=== PATIENT | male | born 1955 | race Caucasian/White ===

== ENCOUNTER 2016-05-22 13:53 | Emergency (ER) | payer OTHER ==
[~2016-05-22] VITALS: Ht 185.4 cm; Wt 84.7 kg
[~2016-05-22 13:53] MED LIST: CLONAZEPAM1 MG PO; EFFEXOR XR75 MG PO; KEPPRA1000 MG PO; KEPPRA750 MG PO; LEVETIRACETAM1000 MG PO; LEVETIRACETAM500 MG PO; LEVETIRACETAM750 MG PO; LISINOPRIL10 MG PO; LISINOPRIL20 MG PO; METFORMIN HCL1000 MG PO; METFORMIN HCL850 MG PO; OMEPRAZOLE20 MG PO; OXCARBAZEPINE300 MG PO; PHENOBARBITAL32.4 MG PO; RITALIN20 MG PO; SIMVASTATIN40 MG PO; VENLAFAXINE HCL75 M3 PO; XANAX1 MG PO
[2016-05-22 15:29] LABS: EOSINOPHIL (%) 2.2 % (0-5); EOSINOPHIL COUNT 0.2 K/uL (0-0.3); HEMATOCRIT 41.7 % (38.0-50.0); IMMATURE GRANULOCYTE (%) 0.4 % (0.0-0.7); IMMATURE GRANULOCYTE COUNT 0.3 K/uL; LYMPHOCYTE COUNT 2.3 K/uL (1.0-2.8); MCH 30.8 PG (29.0-34.0); MCHC 36.5 G/DL (30.0-36.0); MCV 84.4 FL (86-99); MEAN PLAT.VOLUME 9.5 uM^3 (9.0-12.4); NEUTROPHIL (%) 53.7 % (45-76); NEUTROPHIL COUNT 4.1 K/uL (1.8-6.4); PLATELET COUNT 239 K/uL (156-360); RBC DIS.WIDTH-CV 12.2 % (11.8-14.6); RBC DIS.WIDTH-SD 36.8 % (39-53); RED BLOOD COUNT 4.94 M/uL (4.00-5.50); WHITE BLOOD COUNT 7.6 K/uL (4.1-10.2)
[2016-05-22 15:41] LABS: CHLORIDE 99 mEq/L (99-109); POTASSIUM 4.3 mEq/L (3.7-5.4); SODIUM 134 mEq/L (136-147)
[2016-05-22 15:43] LABS: GLUCOSE 100 mg/dL (70-99)
[2016-05-22 15:45] LABS: ANION GAP 8 MEQ/L (2-14); TOTAL BILIRUBIN 0.6 mg/dL (0.0-1.0)
[2016-05-22 15:47] LABS: ALKALINE PHOSPHATASE 69 IU/L (3-129); GFR ESTIMATE (CALCULATED) > 59 mL/min/
[2016-05-22 15:48] LABS: UREA NITROGEN (BUN) 13 mg/dL (9-23)
[2016-05-22 16:16] LABS: PHENOBARBITAL < 5.0 MCG/ML (15-40)
[2016-05-22] MEDS ORDERED: XANAX1 MG PO (16:51)
[2016-05-22] MEDS ORDERED: PHENOBARBITAL32.4 MG PO (17:12)
[2016-05-22] MEDS ORDERED: TRILEPTAL600 MG PO (17:12)
[2016-05-22 18:39] VITALS: BP 131/90
== END 2016-05-22 18:43 | disposition home or self-care (01) ==
LOC: EME 13:53
PROVIDERS: Emergency Medicine
DX: G40.909 Epilepsy, unspecified, not intractable, without status epilepticus (principal); Z91.14 Patient's other noncompliance with medication regimen; I10 Essential (primary) hypertension; E78.5 Hyperlipidemia, unspecified; E11.9 Type 2 diabetes mellitus without complications; Z87.891 Personal history of nicotine dependence
CPT/HCPCS: 80053; 80184; 85025; 99281; 99284; J2250; J7030